=== PATIENT | male | born 1990 | race Caucasian/White ===

== ENCOUNTER 2017-05-11 13:58 | Emergency (ER) | payer SELFPAY ==
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
--- NOTE | 2017-05-11 15:48 | ED ORDER SUMMARY ---
..... Patient: ALBERTO WONG OrderSheet [facility] VisitID: [id number] [place] [address] 26y, M Registration Date/Time: 05/11/2017 ORDER SHEET Weight: 138.3 kg (stated) Allergies: No Known Drug Allergy GENERAL ORDERS: Cervical Spine 4 or 5V Urgent (14:57 05/11/2017 DDelise R.NRobbin per protocol) (Ack 15:00 KHoerner) (15:18 oerner) MEDICATION ORDERS: IV FLUIDS: ORDER SHEET NOTES: [Electronically signed by Fannie OlguinNRobbinPRobbin (15:58 05/11/2017)] [Electronically signed by Amira Petty R.N. (16:25 05/11/2017)] [Electronically locked/signed by Amira Petty R.N. (16:25 05/11/2017)]
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
--- NOTE | 2017-05-11 15:48 | ED ORDER SUMMARY ---
..... Patient: ALBERTO WONG OrderSheet [facility] VisitID: [id number] [place] [address] 26y, M Registration Date/Time: 05/11/2017 ORDER SHEET Weight: 138.3 kg (stated) Allergies: No Known Drug Allergy GENERAL ORDERS: Cervical Spine 4 or 5V Urgent (14:57 05/11/2017 DDelise R.NRobbin per protocol) (Ack 15:00 KHoerner) (15:18 oerner) MEDICATION ORDERS: IV FLUIDS: ORDER SHEET NOTES: [Electronically signed by Fannie OlguinNRobbinPRobbin (15:58 05/11/2017)] [Electronically signed by Amira Petty R.N. (16:25 05/11/2017)] [Electronically locked/signed by Amira Petty R.N. (16:25 05/11/2017)]
--- NOTE | 2017-05-11 16:25 | ED MED RECONCILIATION SUMMARY ---
Patient: ALBERTO WONG Medication Reconciliation Report [facility] VisitID: [id number] [place] [address] 26y, M Registration Date/Time: 05/11/2017 Weight: 138.3 kg Height/Length: 71 in. BMI: 42.5 ALLERGIES: No Known Drug Allergy The patient's Home Medications are listed below: THE FOLLOWING MEDICATIONS NEED TO BE RECONCILED: Omeprazole Oral [facility]-- ran out of meds The source(s) of the original Home Medication information: Not obtained. The following Medications were given to the patient in the Emergency Department: None. The following Medications were prescribed to the patient: Flexeril 10 mg: Take 1 orally every 8 hours as needed for muscle spasm. Dispense twenty (20). No refills. Substitution is permissible. -- Fannie Olguin, A.R.N.P. Ultram 50 mg tablets: take 1-2 orally every 6 hours as needed for pain. Dispense twenty (20). No refills. Substitution is permissible. -- Fannie Olguin, A.R.N.P.
--- NOTE | 2017-05-11 16:25 | ED MAR SUMMARY ---
..... Medication Administration Record [facility] [address] [place], [place] [id number] Patient: ALBERTO WONG Visit ID: [id number] 26y, M Weight: 138.3 kg Height/Length: 71 in BMI: 42.5 ALLERGIES: No Known Drug Allergy
--- NOTE | 2017-05-11 16:25 | ED MAR SUMMARY ---
..... Medication Administration Record [facility] [address] [place] [id number] Patient: ALBERTO WONG Visit ID: [id number] 26y, M Weight: 138.3 kg Height/Length: 71 in BMI: 42.5 ALLERGIES: No Known Drug Allergy
--- NOTE | 2017-05-11 16:25 | ED MED RECONCILIATION SUMMARY ---
Patient: ALBERTO WONG Medication Reconciliation Report [facility] VisitID: [id number] [place] [address] 26y, M Registration Date/Time: 05/11/2017 Weight: 138.3 kg Height/Length: 71 in. BMI: 42.5 ALLERGIES: No Known Drug Allergy The patient's Home Medications are listed below: THE FOLLOWING MEDICATIONS NEED TO BE RECONCILED: Omeprazole Oral [facility]-- ran out of meds The source(s) of the original Home Medication information: Not obtained. The following Medications were given to the patient in the Emergency Department: None. The following Medications were prescribed to the patient: Flexeril 10 mg: Take 1 orally every 8 hours as needed for muscle spasm. Dispense twenty (20). No refills. Substitution is permissible. -- Fannie Olguin, A.R.N.P. Ultram 50 mg tablets: take 1-2 orally every 6 hours as needed for pain. Dispense twenty (20). No refills. Substitution is permissible. -- Fannie Olguin, A.R.N.P.
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
== END 2017-05-11 15:55 | disposition home or self-care (01) ==
LOC: ED SRH 13:58
DX: S16.1XXA Strain of muscle, fascia and tendon at neck level, initial encounter (principal); V43.63XA Car passenger injured in collision with pick-up truck in traffic accident, initial encounter; Y93.89 Activity, other specified; Y92.410 Unspecified street and highway as the place of occurrence of the external cause; I10 Essential (primary) hypertension; E78.00 Pure hypercholesterolemia, unspecified; Z79.899 Other long term (current) drug therapy; F17.210 Nicotine dependence, cigarettes, uncomplicated